=== PATIENT | female | born 1985 | race Caucasian/White ===

== ENCOUNTER 2020-02-21 07:35 | Inpatient (IN) ==
[2020-02-21 08:54] LABS: Apearance,Urine CLOUDY (Clear); Bacteria,Urine Moderate /HPF (Few); Bilirubin,Urine Negative (Negative); Blood, Urine Small mg/dL (Negative); Glucose,Urine (UA) Negative (Negative); Ketones,Urine 20 mg/dL (Negative); Mucus,Urine Occasional /LPF (Occasional); Nitrite,Urine Negative (Negative); Protein,Urine Negative; RBC,Urine 5 /HPF (0-4); Squamous Epithelial Cell,Urine Occasional /HPF (0-10); Urine Color Yellow (Yellow); Urine Specific Gravity 1.014 (1.001-1.035); Urine Urobilinogen < 2.0 EU/DL (0.2-1.0); WBC,Urine 11 /HPF (0-6)
[2020-02-21] MEDS ORDERED: ceFAZolin 2,000 MG in PREMIX 1 EACH IV ONE ×2 (09:16→09:34)
[2020-02-21] MEDS ORDERED: CITRIC ACID/SODIUM CITRATE 30 ML UDCUP PO ONE (09:34)
[2020-02-21] MEDS ORDERED: FAMOTIDINE 20 MG/2 ML VIAL IV ONE (09:34)
[2020-02-21] MEDS: LACTATED RINGERS 1,000 ML IV SCH ×2 (09:40→10:58)
[2020-02-21] MEDS ORDERED: LACTATED RINGERS 1,000 ML IV SCH (10:00)
[2020-02-21 10:13] LABS: Basophils % 0.1 % (0.0-0.8); Eosinophils % 0.1 % (0.00-10.9); Hematocrit 35.7 VOL% (35.7-47.0); Immature Granulocytes % 0.4 %; Immature Granulocytes Absolute 0.03 #; Lymphocytes % 12.5 % (21.3-54.2); Mean Corpuscular HGB Conc 33.6 GM/DL (32-36); Mean Corpuscular Volume 88.1 FL (87-102); Mean Platelet Volume 10.8 FL (9.6-12.0); Monocytes % 4.4 % (1.7-12.7); Neutrophils % 82.5 % (38.7-73.9); Platelet Count 163 T/CUMM (130-400); Red Blood Count 4.05 MC/CUMM (3.8-5.5); Red Cell Distribution Width 13.9 % (9.3-17.3); White Blood Count 7.8 T/CUMM (4-12)
[2020-02-21] MEDS ORDERED: METHYLERGONOVINE 0.2 MG/1 ML AMP ONE (10:28)
[2020-02-21] MEDS ORDERED: miSOPROStoL 200 MCG TABLET ONE (10:28)
[2020-02-21] MEDS ORDERED: OXYTOCIN/LR 20 UNIT/1,000 ML BAG IV ONE ×3 (10:28→12:55)
[2020-02-21] MEDS ORDERED: CARBOPROST TROMETHAMINE 250 MCG/ML AMP IM ONE (10:28)
[2020-02-21] MEDS ORDERED: TRANEXAMIC ACID 1,000 MG/10 ML VIAL ONE (10:28)
[2020-02-21] MEDS ORDERED: BUPIVACAINE 0.25% 50 ML VIAL ONE (10:34)
[2020-02-21] MEDS ORDERED: ONDANSETRON 4 MG/2 ML VIAL ONE (10:34)
[2020-02-21] MEDS ORDERED: fentaNYL 100 MCG/2 ML VIAL ONE (10:34)
[2020-02-21] MEDS ORDERED: PHENYLEPHRINE 1 MG/10 ML SYRINGE IV ONE (10:34)
[2020-02-21] MEDS ORDERED: MORPHINE 10 MG/10 ML VIAL ONE (10:34)
[2020-02-21] MEDS ORDERED: BUPIVACAINE SPINAL 0.75% 2 ML AMP SPINAL ONE (10:34)
[2020-02-21] MEDS ORDERED: DEXAMETHASONE 4 MG/1 ML VIAL ONE (10:35)
[2020-02-21 10:43] LABS: Albumin 2.7 G/DL (3.4-5.0); Bilirubin,Total 0.5 MG/DL (0.2-1.0); Calcium 8.9 MG/DL (8.5-10.1); Osmolality,Calculated 272.5 MOS/KG (273-304); Total Protein 6.7 G/DL (6.4-8.3)
[2020-02-21 12:22] LABS: Cord Venous Blood HCO3 23.4 MMOL/L; Cord Venous Blood PCO2 42.8 MMHG; Cord Venous Blood PO2 69.7 MMHG
[2020-02-21 12:22] LABS: Cord Arterial Blood HCO3 22.4 MMOL/L
[2020-02-21] MEDS ORDERED: oxyCODONE/ACETAMINOPHEN 5-325 MG TABLET PO PRN (12:55)
[2020-02-21] MEDS ORDERED: DIPH/TET/ACEL PERT BOOSTER VACCINE 0.5 ML VIAL IM ONE (12:55)
[2020-02-21] MEDS ORDERED: BENZOCAINE 20%/MENTHOL 0.5% SPRAY 56 GM CAN TOP PRN (12:55)
[2020-02-21] MEDS ORDERED: LANOLIN 50% CREAM 0.3 OZ TUBE TOP PRN (12:55)
[2020-02-21] MEDS ORDERED: BISACODYL 10 MG SUPP RECTAL PRN (12:55)
[2020-02-21] MEDS ORDERED: RHO(D) IMMUNE GLOBULIN 300 MCG SYRINGE IM ONE (12:55)
[2020-02-21] MEDS ORDERED: WITCH HAZEL PADS 100/JAR TOP PRN (12:55)
[2020-02-21] MEDS ORDERED: ACETAMINOPHEN 325 MG TABLET PO PRN (12:55)
[2020-02-21] MEDS ORDERED: MEASLES/MUMPS/RUBELLA VACCINE 0.5 ML VIAL SUBCUT ONE (12:55)
[2020-02-21] MEDS ORDERED: HYDROCORTISONE 2.5% RECTAL CREAM 30 GM TUBE TOP PRN (12:55)
[2020-02-21] MEDS ORDERED: ONDANSETRON 4 MG/2 ML VIAL IV PRN (12:55)
[2020-02-21 13:27] LABS: Apearance,Urine CLEAR (Clear); Bilirubin,Urine Negative (Negative); Blood, Urine Negative (Negative); Glucose,Urine (UA) Negative (Negative); Ketones,Urine 20 mg/dL (Negative); Nitrite,Urine Negative (Negative); Protein,Urine Negative; RBC,Urine 1 /HPF (0-4); Squamous Epithelial Cell,Urine Occasional /HPF (0-10); Urine Color Straw (Yellow); Urine Specific Gravity 1.008 (1.001-1.035); Urine Urobilinogen < 2.0 EU/DL (0.2-1.0); WBC,Urine <1 /HPF (0-6)
[2020-02-21] MEDS: HYDROmorphone 2 MG/1 ML VIAL IV PRN ×2 (14:34→16:15)
[2020-02-21] MEDS: ceFAZolin 1,000 MG in SYRINGE 1 EACH IV SCH (18:44)
[2020-02-21] MEDS: IBUPROFEN 800 MG TABLET PO PRN (18:50)
[2020-02-22] MEDS: oxyCODONE/ACETAMINOPHEN 5-325 MG TABLET PO PRN ×4 (01:04→19:12)
[2020-02-22] MEDS: ceFAZolin 1,000 MG in SYRINGE 1 EACH IV SCH (03:37)
[2020-02-22 05:24] LABS: Basophils % 0.2 % (0.0-0.8); Eosinophils # 0.1 10*3/uL (0.0-0.87); Eosinophils % 0.7 % (0.00-10.9); Hematocrit 32.6 VOL% (35.7-47.0); Hemoglobin 11.1 GM/DL (12.0-16.0); Immature Granulocytes % 0.5 %; Immature Granulocytes Absolute 0.07 #; Lymphocytes # 1.2 10*3/uL (1.4-4.0); Lymphocytes % 8.9 % (21.3-54.2); Mean Platelet Volume 11.4 FL (9.6-12.0); Neutrophils % 83.7 % (38.7-73.9); Platelet Count 170 T/CUMM (130-400); Red Blood Count 3.79 MC/CUMM (3.8-5.5); Red Cell Distribution Width 13.6 % (9.3-17.3); White Blood Count 13.2 T/CUMM (4-12)
[2020-02-22] MEDS: DOCUSATE SODIUM 100 MG CAPSULE PO SCH ×3 (07:22→21:48)
[2020-02-22] MEDS: IBUPROFEN 800 MG TABLET PO PRN (10:46)
[2020-02-22] MEDS: SIMETHICONE CHEW 80 MG TABLET PO PRN ×3 (10:50→21:47)
[2020-02-22] MEDS: MAGNESIUM HYDROXIDE SUSP 30 ML UDCUP PO PRN ×2 (10:50→21:47)
[2020-02-23] MEDS: oxyCODONE/ACETAMINOPHEN 5-325 MG TABLET PO PRN ×2 (00:29→07:44)
[2020-02-23] MEDS: IBUPROFEN 800 MG TABLET PO PRN ×2 (03:52→11:57)
[2020-02-23] MEDS: MAGNESIUM HYDROXIDE SUSP 30 ML UDCUP PO PRN (07:44)
[2020-02-23] MEDS: SIMETHICONE CHEW 80 MG TABLET PO PRN (07:44)
[2020-02-23] MEDS: DOCUSATE SODIUM 100 MG CAPSULE PO SCH ×2 (07:44→18:03)
[2020-02-23 11:54] VITALS: BP 118/74
== END 2020-02-23 13:50 | disposition home or self-care (01) | DRG 785 ==
LOC: N.LDOUT 07:35 → N.LD 07:40 → N.OB 17:14
PROVIDERS: ADMIT Specialist; ATTEND Specialist